=== PATIENT | female | born 1990 | race African-American/Black ===

== ENCOUNTER 2016-12-03 23:04 | Emergency (ER) | payer MEDICAID, OTHER ==
[2016-12-04] MEDS ORDERED: KETOROLAC 60 MG/2 ML VIAL IM ONE (02:38)
== END 2016-12-04 06:03 | disposition home or self-care (01) ==
LOC: ER 23:04
DX: N76.0 Acute vaginitis (principal); N30.00 Acute cystitis without hematuria; N83.202 Unspecified ovarian cyst, left side; Z79.899 Other long term (current) drug therapy; F17.210 Nicotine dependence, cigarettes, uncomplicated
CPT/HCPCS: 36415; 74176; 76830; 80053; 81001; 83690; 84703; 85025; 87491; 87591; 87800